=== PATIENT | female | born 1960 | race Caucasian/White ===

== ENCOUNTER 2017-01-03 22:45 | Inpatient (IN) | payer BC, OTHER ==
--- NOTE | ~2017-01-03 | DS ---
Discharge Summary [facility] [address] [place]. [address] NAME: DEE SCHULER : 60 STATUS : DIS IN PAT#: [id number] AGE: 56 ADM/REG DATE : 01/03/17 MR#: [id number] REPORT SERV DATE: 01/09/17 DICTATED BY: EARNESTINE TIRADO DATE: 01/08/17 REPORT STATUS : Draft TRANSCRIBED BY: MODL DATE: 01/08/17 ADMISSION DATE: 01/03/2017 DISCHARGE DATE: 01/08/2017 REASON FOR ADMISSION: Uncontrolled diabetes, severe rectal cancer pain and bleeding. HISTORY OF PRESENT ILLNESS: Please refer to Dr. Enrique Franco's history and physical dated 01/04/2017 for complete details regarding the patient's admission. In brief, the patient was admitted to Hospitalist Service for management of her HONK and rectal pain. HOSPITAL COURSE: The patient had an uncomplicated hospital course. She was started on IV PROOFER Dilaudid pump along with an IV insulin drip. A1c came back at around 14%. Dr. Lucero oCbb assumed care of the patient from Dr. Franco who had discontinued her PROOFER pump and put her on a very low dose of Dilaudid along with Percocet for pain control. She was switched over to her home regimen of Levemir, which was then increased to 30 units once a day. Her CBGs had markedly improved from admission. She had a PET scan done on 01/07/2017, there was a delay in getting it done as the patient had been instructed to not eat or drink anything after midnight, but she did. PET scan showed left perirectal and right inguinal lymph nodes are not pathologically enlarged or FDG avid. There is no distant metastatic disease. There is marked increased FDG uptake surrounding the anus, which is at the site of the patient's primary neoplasm. Surgery was consulted and the patient decided to do chemotherapy and radiation therapy instead of surgical intervention as she was not prepared to have to deal with an ostomy. Dr. Garcia was consulted and recommended starting radiation therapy on Friday along with chemotherapy. The patient has reached maximal hospitalization and will be discharged today in stable condition to follow up on Friday with Dr. Garcia and Dr. Paredes for chemotherapy and radiation treatment. 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 PROCEDURES: Include consultation with Dr. Paredes, Dr. Garcia, and Surgery, PET scan. DISCHARGE MEDICATIONS: Include insulin glargine 30 units at bedtime, Colace 100 mg twice a day, lactulose 15 mL twice a day, Seroquel 400 mg at bedtime, Actos 30 mg daily, MiraLAX one packet 17 g daily, lisinopril 10 mg daily, and Lopressor 25 mg twice a day. FOLLOWUP: The patient will follow up with Dr. Paredes and Dr. Garcia. This is Dr. Earnestine Tirado spending over 30 minutes discharge planning and coordination of care of Ms. Schuler. DICTATED BY: Earnestine Tirado MD Discharge Summary [address] [address] NAME: DEE SCHULER : 60 STATUS : DIS IN PAT#: [id number] AGE: 56 ADM/REG DATE : 01/03/17 MR#: [id number] REPORT SERV DATE: 01/09/17 DICTATED BY: EARNESTINE TIRADO DATE: 01/08/17 REPORT STATUS : Draft TRANSCRIBED BY: SHIRA DATE: 01/08/17 SUSANA Earnestine Tirado MD / [id number] CC: MD Ricardo Man MD Jonathan T Whaley, MD
--- NOTE | ~2017-01-03 | CONSULT ---
Radiation Oncology Consult [place] [id number] [facility] [place]. [address] NAME: DEE JOHNSON : 60 STATUS : ADM IN [facility]#: [id number] AGE: 56 ADM/REG DATE : 01/03/17 MR#: [id number] REPORT SERV DATE: 01/06/17 DICTATED BY: MARY GARCIA DATE: 01/06/17 REPORT STATUS : Draft TRANSCRIBED BY: SHIRA DATE: 01/06/17 RADIATION ONCOLOGY CONSULTATION DIAGNOSIS: Locally advanced anal cancer. 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 She presented with a four- to five-month history of pelvic pain. She was found to have a mass that was biopsy proven to be squamous cell carcinoma. Her workup has been delayed as an outpatient due to noncompliance. She re-presented with progressive pain and is admitted to the hospital. She is currently awaiting a PET-CT for completion of her staging. At today's visit, the patient continues to have progressive pain. She reports it is a 10/10 without pain medication. She has difficulty with bowel movements and is unable to lie flat. She denies any urination changes. She continues to smoke. She denies headaches, new neurologic symptoms, or bone pain. PAST MEDICAL HISTORY: 1. Insulin-dependent diabetes. 2. Depression. 3. Hypertension. REVIEW OF SYSTEMS: Complete and extended review of system was performed. Pertinent positives noted in the HPI. MEDICATIONS: Medication reconciliation has been reviewed and discussed. Please refer to EMR. ALLERGIES: HYDROCODONE. SOCIAL HISTORY: The patient is single and unemployed. She has history of noncompliance. She smokes one or two packs per day. She drinks occasionally and uses occasional recreational drugs. PHYSICAL EXAMINATION: ECOG performance status of 2. Pain score 10/10. VITAL SIGNS: Weight 123, height 5 feet 8 inches, afebrile. GENERAL: A well-developed, well-nourished female, in no acute distress. She appears older than stated age. HEENT: Normocephalic. Extraocular movements intact. Moist mucous membranes. LYMPHATICS: No supraclavicular or cervical lymphadenopathy. CARDIOVASCULAR: Normal rate and rhythm. No murmurs. RESPIRATORY: Clear to auscultation bilaterally. Normal work of breathing. GI: Soft, nontender, and nondistended. Radiation Oncology Consult [address] [place]. [address] NAME: DEE JOHNSON : 60 STATUS : ADM IN PAT#: [id number] AGE: 56 ADM/REG DATE : 01/03/17 MR#: [id number] REPORT SERV DATE: 01/06/17 DICTATED BY: MARY GARCIA DATE: 01/06/17 REPORT STATUS : Draft TRANSCRIBED BY: SHIRA DATE: 01/06/17 EXTREMITIES: No edema. No range of motion. NEURO: Cranial nerves intact. Gait within normal limits. PSYCH: Verbalized understanding of our discussion. Demonstrates appropriate insight. IMAGING: I personally reviewed the CT, which shows locally advanced anal cancer. There was a groin node that appeared to be positive. PET-CT is pending. ASSESSMENT AND PLAN: A 56-year-old female with an anal squamous cell carcinoma, who is admitted for pain control. She is scheduled for a PET-CT tomorrow. I have performed her simulation for treatment planning, but will await the PET-CT to decide on her final radiation regimen. I would like to start her treatment as an inpatient if possible. She will need to be followed closely with Social Work so that transportation can be arranged daily due to her difficult social situation. I appreciate the opportunity to take part in this patient's care. JTW/SHIRA Mary Garcia MD / [id number] CC: Kenia Garcia MD Bertrand Marquess Anz III, M.D.
--- NOTE | ~2017-01-03 | HP ---
History And Physical [place] [id number] [facility] [place]. [address] NAME: DEE SCHULER : 60 STATUS : ADM IN [facility]#: [id number] AGE: 56 ADM/REG DATE : 01/03/17 MR#: [id number] REPORT SERV DATE: 01/04/17 DICTATED BY: MAICOL SAAVEDRA DATE: 01/04/17 REPORT STATUS : Draft TRANSCRIBED BY: MODL DATE: 01/04/17 DATE OF ADMISSION: 01/03/2017 CHIEF COMPLAINT: A 56-year-old female presenting with extremely painful and bleeding large rectal cancer mass. HISTORY OF PRESENT ILLNESS: The patient's history was obtained through careful review of the patient coupled with review of [facility] and [facility] medical records. The patient was diagnosed with squamous cell carcinoma rectal cancer in October 2016. She is being evaluated for chemotherapy and radiation but at this time, there has been no discussion of surgical resection. Unfortunately, the patient has been having increasing pain and bleeding from this mass. The mass actually protrudes from her rectum and has become excruciatingly uncomfortable. She states that there is a squeezing sharp pain that has gotten to a point where she cannot lie down in certain positions, anything that touches her rectum it causes extreme pain, and she cannot walk or move her legs because of pain. It is a 10/10 pain that is constant. The bleeding has been quite severe. She also finds it difficult to use the restroom because of pain with defecation. The patient admits that she has not been watching her blood sugars very closely, and she has been skipping doses of insulin. She does have polyuria and polydipsia. No shortness of breath. No chest pain. No weight loss. No fevers, chills. No nausea, vomiting. REVIEW OF SYSTEMS: Otherwise, a 14-point review of systems was obtained and was negative. PAST MEDICAL HISTORY: 1. Squamous cell carcinoma and rectal cancer, diagnosed in October 2016, followed by Dr. Chávez and Dr. Sanchez, radiation oncologist, and Dr. Schuler, surgeon. 2. Diabetes. 3. Hypertension. 4. Depression. 5. Obstructive sleep apnea, but does not use a CPAP. PAST SURGICAL HISTORY: 1. Hysterectomy. 2. Hernia repair. 3. Cholecystectomy. 4. Port-A-Cath placement. ALLERGIES: HYDROCODONE AND CODEINE. History And Physical [facility] [address] [place]. [address] NAME: DEE SCHULER : 60 STATUS : ADM IN PAT#: [id number] AGE: 56 ADM/REG DATE : 01/03/17 MR#: [id number] REPORT SERV DATE: 01/04/17 DICTATED BY: MAICOL SAAVEDRA DATE: 01/04/17 REPORT STATUS : Draft TRANSCRIBED BY: SHIRA DATE: 01/04/17 SOCIAL HISTORY: Smokes about two packs per day. Rare alcohol use. Lives alone. Has used marijuana. Has grown children who live locally. FAMILY HISTORY: Father and brother with lung cancer. Sister with cancer. CURRENT MEDICATIONS: Include ibuprofen, Toujeo, glargine insulin 20 units subcutaneous at bedtime, lisinopril 10 mg p.o. daily, Lopressor 25 mg p.o. daily, Actos 30 mg p.o. daily, Seroquel 400 mg p.o. at bedtime. PHYSICAL EXAMINATION: VITAL SIGNS: Temperature 98.2, pulse 125, blood pressure 113/52, respiratory rate 20, and O2 saturation 96% on room air. GENERAL: An ill-appearing female, in evidence of described distress secondary to rectal pain. HEENT: Pupils equal, round, and reactive to light. No conjunctival pallor. No scleral icterus. Nares are patent. Oropharynx is clear of obstruction. Moist mucous membranes. NECK: Trachea midline. No thyromegaly. LYMPH: No cervical lymphadenopathy. No supraclavicular lymphadenopathy. No inguinal lymphadenopathy. RESPIRATORY: Clear to auscultation at bases. No wheezes, rales, or rhonchi. Normal respiratory effort. CARDIOVASCULAR: Tachycardic, regular rhythm. No murmurs, rubs, or gallops. No extremity edema is appreciated. ABDOMEN: Soft, nontender, nondistended. Normal bowel sounds auscultated throughout. No hepatosplenomegaly. DERMATOLOGICAL: Warm and dry extremities. No pallor. No cyanosis. PSYCHIATRIC: Frustrated and depressed mood, a flat affect. She denies suicidal ideation. She is alert and oriented x3. RECTAL EXAM: The patient has protruding papillary like and pedunculated mass with friable portions that are bleeding, but no erythema or heat but exquisitely tender to any kind of touch. LABORATORY DATA: White blood cell count 11.5, hemoglobin 15, hematocrit 42, platelets 320. Sodium 135, potassium 3.3, chloride 98, bicarb 25, BUN 8, creatinine 0.87, glucose 469. Liver enzymes within normal limits. ASSESSMENT AND PLAN: 1. Severe rectal cancer pain and bleeding. Placed on IV DESIGN LEAD Dilaudid. Consult Dr. Chávez, oncologist. 2. Hyperosmolar nonketotic hyperglycemia. Placed on insulin drip IV. IV fluids. Check hemoglobin A1c. KPL/MODL History And Physical [address] [place]. [address] NAME: DEE SCHULER : 60 STATUS : ADM IN [facility]#: [id number] AGE: 56 ADM/REG DATE : 01/03/17 MR#: [id number] REPORT SERV DATE: 01/04/17 DICTATED BY: MAICOL SAAVEDRA DATE: 01/04/17 REPORT STATUS : Draft TRANSCRIBED BY: SHIRA DATE: 01/04/17 Maicol Saavedra M.D. / [id number] CC: MD Sushil Austin III, M.D.
[2017-01-03 19:03] LABS: BASOPHILS 0.1 %; BASOPHILS ABSOLUTE 0.01 10/3/uL (0.0-0.16); EOSINOPHILS 0.9 %; ER CBC TAT 0 Hrs 08 Mins; HEMATOCRIT 41.8 % (36.0-48.0); HEMOGLOBIN 14.8 g/dL (12.0-16.0); IMMATURE GRANULOCYTES 0.3 %; IMMATURE GRANULOCYTES ABSOLUTE 0.03 10/3/uL (0.0-0.11); LYMPHOCYTES 30.7 %; LYMPHOCYTES ABSOLUTE 3.53 10/3/uL (0.67-4.30); MANUAL DIFF NO %; MEAN CORPUS HGB CONC 35.4 g/dL (32.0-36.0); MEAN CORPUSCULAR HEMOGLOB 29.2 pg (26.0-34.0); MEAN CORPUSCULAR VOLUME 82.4 fL (80-100); MEAN PLATELET VOLUME 10.8 fL (9.2-13.0); MONOCYTES 6.6 %; MONOCYTES ABSOLUTE 0.76 10/3/uL (0.21-1.20); NEUTROPHILS 61.4 %; NEUTROPHILS ABSOLUTE 7.07 10/3/uL (2.02-8.40); PLATELET COUNT 320 10/3/uL (150-400); RBC DISTRIBUTION WIDTH 12.7 % (12.0-16.0); RED CELL COUNT 5.07 10/6/uL (4.0-5.6); WHITE BLOOD CELLS 11.5 10/3/uL (4.5-10.5)
[2017-01-03 19:19] LABS: A/G RATIO 0.7 (0.7-1.9); ALBUMIN 3.2 G/DL (3.5-5.0); ALKALINE PHOSPHATASE 153 U/L (45-117); CHLORIDE, SERUM 98 MMOL/L (96-112); CO2 (CARBON DIOXIDE) 25 MMOL/L (24-34); CREATININE 0.87 MG/DL (0.55-1.02); GFR AFRICAN AMERICAN 86 ML/MIN (>=60); GFR NON AFRICAN AMERICAN 74 ML/MIN (>=60); GLOBULIN 4.5 G/DL (2.5-4.1); POTASSIUM, SERUM 3.3 MMOL/L (3.5-5.3); SGOT(AST) 9 U/L (5-40); SGPT(ALT) 15 U/L (5-65); SODIUM, SERUM 135 MMOL/L (135-148); TOTAL BILIRUBIN 0.8 MG/DL (0-1.2); TOTAL PROTEIN 7.7 G/DL (6.0-8.5)
[2017-01-03 19:23] LABS: BUN (BLOOD UREA NITROGEN) 8 MG/DL (6-23); CALCIUM, SERUM 10.2 MG/DL (8.5-10.4); GLUCOSE, SERUM 469 MG/DL (60-99)
[~2017-01-03 22:45] MED LIST: ACTOS30 PO; AMITIZA24 PO; BIST PO; CHANTIX1 PO; CRESTOR40 MG PO; CYMBALTA60 PO; LOP25 PO; PCET PO; PEP20 PO; PRILO; PRIN10 PO; SEROQUEL400 MG PO; TOUJEO
[2017-01-03] MEDS ORDERED: TOUJEO SC (23:01)
[2017-01-03] MEDS ORDERED: SEROQUEL400 MG PO (23:02)
[2017-01-03] MEDS ORDERED: ACTOS30 PO (23:03)
[2017-01-03] MEDS ORDERED: PRIN10 PO (23:04)
[2017-01-03] MEDS ORDERED: LOP25 PO (23:04)
[2017-01-03] MEDS ORDERED: ADVIL PO (23:05)
[2017-01-04 07:06] LABS: INTERNATIONAL NORMAL RATI 1.2 UNITS (-); PARTIAL THROMBO TIME 31.5 SEC (22.5-37.2); PROTIME (NOT ORD) 15.3 SEC (12.0-14.5)
[2017-01-04 07:15] LABS: BASOPHILS 0.3 %; BASOPHILS ABSOLUTE 0.02 10/3/uL (0.0-0.16); BUN (BLOOD UREA NITROGEN) 6 MG/DL (6-23); CHLORIDE, SERUM 105 MMOL/L (96-112); CO2 (CARBON DIOXIDE) 27 MMOL/L (24-34); CREATININE 0.38 MG/DL (0.55-1.02); EOSINOPHILS 2.3 %; EOSINOPHILS ABSOLUTE 0.17 10/3/uL (0.0-0.53); GFR AFRICAN AMERICAN 137 ML/MIN (>=60); GFR NON AFRICAN AMERICAN 118 ML/MIN (>=60); IMMATURE GRANULOCYTES 0.4 %; IMMATURE GRANULOCYTES ABSOLUTE 0.03 10/3/uL (0.0-0.11); LYMPHOCYTES 53.1 %; LYMPHOCYTES ABSOLUTE 3.94 10/3/uL (0.67-4.30); MEAN CORPUSCULAR VOLUME 82.7 fL (80-100); MEAN PLATELET VOLUME 10.4 fL (9.2-13.0); MONOCYTES 7.4 %; MONOCYTES ABSOLUTE 0.55 10/3/uL (0.21-1.20); NEUTROPHILS 36.5 %; NEUTROPHILS ABSOLUTE 2.71 10/3/uL (2.02-8.40); PLATELET COUNT 246 10/3/uL (150-400); RBC DISTRIBUTION WIDTH 12.8 % (12.0-16.0); SGOT(AST) 20 U/L (5-40); SGPT(ALT) 14 U/L (5-65); SODIUM, SERUM 141 MMOL/L (135-148); TOTAL BILIRUBIN 0.7 MG/DL (0-1.2); WHITE BLOOD CELLS 7.4 10/3/uL (4.5-10.5)
[2017-01-04 07:16] LABS: A/G RATIO 0.7 (0.7-1.9); ALBUMIN 2.3 G/DL (3.5-5.0); ALKALINE PHOSPHATASE 114 U/L (45-117); CALCIUM, SERUM 8.3 MG/DL (8.5-10.4); GLOBULIN 3.2 G/DL (2.5-4.1); GLUCOSE, SERUM 185 MG/DL (60-99); POTASSIUM, SERUM 2.9 MMOL/L (3.5-5.3); TOTAL PROTEIN 5.5 G/DL (6.0-8.5)
[2017-01-04 07:17] LABS: HEMATOCRIT 33.4 % (36.0-48.0); HEMOGLOBIN 11.7 g/dL (12.0-16.0); MANUAL DIFF NO %; RED CELL COUNT 4.04 10/6/uL (4.0-5.6)
[2017-01-06 05:54] LABS: BASOPHILS 0.2 %; BASOPHILS ABSOLUTE 0.02 10/3/uL (0.0-0.16); EOSINOPHILS 1.7 %; EOSINOPHILS ABSOLUTE 0.18 10/3/uL (0.0-0.53); HEMOGLOBIN 12.7 g/dL (12.0-16.0); IMMATURE GRANULOCYTES 0.3 %; IMMATURE GRANULOCYTES ABSOLUTE 0.03 10/3/uL (0.0-0.11); LYMPHOCYTES 34.4 %; LYMPHOCYTES ABSOLUTE 3.72 10/3/uL (0.67-4.30); MEAN CORPUS HGB CONC 33.4 g/dL (32.0-36.0); MEAN CORPUSCULAR HEMOGLOB 28.5 pg (26.0-34.0); MEAN PLATELET VOLUME 10.5 fL (9.2-13.0); MONOCYTES 7.3 %; MONOCYTES ABSOLUTE 0.79 10/3/uL (0.21-1.20); NEUTROPHILS 56.1 %; NEUTROPHILS ABSOLUTE 6.07 10/3/uL (2.02-8.40); PLATELET COUNT 288 10/3/uL (150-400); RBC DISTRIBUTION WIDTH 13.1 % (12.0-16.0); RED CELL COUNT 4.45 10/6/uL (4.0-5.6)
[2017-01-06 05:57] LABS: MANUAL DIFF NO %; MEAN CORPUSCULAR VOLUME 85.4 fL (80-100); WHITE BLOOD CELLS 10.8 10/3/uL (4.5-10.5)
[2017-01-06 06:01] LABS: CALCIUM, SERUM 8.8 MG/DL (8.5-10.4); CHLORIDE, SERUM 102 MMOL/L (96-112); CO2 (CARBON DIOXIDE) 31 MMOL/L (24-34); CREATININE 0.64 MG/DL (0.55-1.02); GFR AFRICAN AMERICAN 116 ML/MIN (>=60); GFR NON AFRICAN AMERICAN 100 ML/MIN (>=60); GLUCOSE, SERUM 156 MG/DL (60-99); SODIUM, SERUM 138 MMOL/L (135-148)
[2017-01-06 06:03] LABS: BUN (BLOOD UREA NITROGEN) 12 MG/DL (6-23); POTASSIUM, SERUM 4.2 MMOL/L (3.5-5.3)
[2017-01-08] MEDS ORDERED: DSS PO (14:11)
[2017-01-08] MEDS ORDERED: ENULOSE PO (14:16)
[2017-01-08] MEDS ORDERED: MIRALAX POWDER1 PKT PO (14:17)
[2017-01-08] MEDS ORDERED: LEVEMIR SC (14:19)
[2017-01-08] MEDS ORDERED: NORCO1 TA1 PO (14:20)
== END 2017-01-08 19:50 | disposition home or self-care (01) | DRG 374 ==
LOC: ER 22:45 → 7NO 23:54
PROVIDERS: Emergency Medicine; Hospitalist; Internal Medicine
DX: C21.0 Malignant neoplasm of anus, unspecified (principal); E11.00 Type 2 diabetes mellitus with hyperosmolarity without nonketotic hyperglycemic-hyperosmolar coma (NKHHC); D62 Acute posthemorrhagic anemia; K62.5 Hemorrhage of anus and rectum; G89.3 Neoplasm related pain (acute) (chronic); E11.65 Type 2 diabetes mellitus with hyperglycemia; I10 Essential (primary) hypertension; F17.210 Nicotine dependence, cigarettes, uncomplicated; F32.9 Major depressive disorder, single episode, unspecified; K59.00 Constipation, unspecified; D63.0 Anemia in neoplastic disease; Z90.710 Acquired absence of both cervix and uterus; Z90.49 Acquired absence of other specified parts of digestive tract; Z88.5 Allergy status to narcotic agent; Z79.4 Long term (current) use of insulin; Z91.19 Patient's noncompliance with other medical treatment and regimen
CPT/HCPCS: 78815; 80048; 80053; 81001; 82962; 83036; 83690; 83735; 84443; 85025; 85610; 85730; 96374; 99284; A9270-GY; A9552; J1170; J1885; J2405; J3475